=== PATIENT | male | born 1975 | race American Indian/Alaskan Native ===

== ENCOUNTER 2020-03-09 17:08 | Emergency (ER) | payer MEDICAID ==
[2020-03-09] MEDS ORDERED: Sodium Chloride 0.9% 10 ML Syringe FLUSH PRN (17:12)
[2020-03-09] MEDS ORDERED: fentaNYL 100 MCG/2 ML SDV IVPUSH ONE (17:13)
--- NOTE | 2020-03-09 17:16 | EDM.PDOC ---
<OfficerCarl - Last Filed: 03/09/20 17:14> ED HPI GENERAL MEDICAL PROBLEM - General Chief Complaint: Chest Pain Stated Complaint: [facility] Time Seen by Provider: 03/09/20 17:12 Source of Information: Reports: Patient, RN Notes Reviewed History Limitations: Reports: No Limitations - History of Present Illness INITIAL COMMENTS - FREE TEXT/NARRATIVE: 44-year-old gentleman presents emergency department a complaint of chest pain, he is unsure of when the pain started as he was asleep he is currently incarcerated. Report from [facility] states the pain started about an hour and a half prior to presentation. He does have a history of stenting x3 about 1 year ago, he did have pain going down his left arm and up into his jaw he received aspirin and 3 sprays of nitro in route he states the jaw pain and the arm pain have improved but he still having chest discomfort. No nausea or vomiting no shortness of breath - Related Data Allergies Allergy/AdvReac Type Severity Reaction Status Date / Time Penicillins Allergy Other Verified 03/09/20 17:16 Home Meds: Home Meds Fenofibrate 40 mg PO DAILY 03/09/20 [History] Metoprolol Tartrate 25 mg PO DAILY 03/09/20 [History] NK [No Known Home Meds] 03/09/20 [History] atorvaSTATin [Lipitor] 40 mg PO BEDTIME 03/09/20 [History] lisinopriL [Lisinopril] 5 mg PO DAILY 03/09/20 [History] Past Medical History Cardiovascular History: Reports: CAD, High Cholesterol, Hypertension, [place] Social & Family History - Tobacco Use Tobacco Use Status *Q: Current Every Day Tobacco User ED ROS GENERAL - Review of Systems Review Of Systems: See Below Constitutional: Reports: No Symptoms HEENT: Reports: No Symptoms Respiratory: Reports: No Symptoms Cardiovascular: Reports: Chest Pain GI/Abdominal: Reports: No Symptoms Musculoskeletal: Reports: Neck Pain, Arm Pain ED EXAM, GENERAL - Physical Exam Exam: See Below Exam Limited By: No Limitations General Appearance: Alert, WD/WN, No Apparent Distress Respiratory/Chest: No Respiratory Distress, Lungs Clear, Normal Breath Sounds, No Accessory Muscle Use, Chest Non-Tender Cardiovascular: Regular Rate, Rhythm, No Murmur GI/Abdominal: Soft, Non-Tender, Other (Umbilical hernia) Departure - Departure Disposition: Home, Self-Care 01 Clinical Impression: Atypical chest pain Contusion of hand, left Qualifiers: Encounter type: initial encounter Qualified Code(s): S60.222A - Contusion of left hand, initial encounter Referrals: PCP,None [Primary Care Provider] - Forms: ED Department Discharge <Octaviano Figueroa - Last Filed: 03/09/20 20:03> ED HPI GENERAL MEDICAL PROBLEM Chest Pain Score (Numeric/FACES): 7 Course - Vital Signs Last Recorded V/S: Last Vital Signs Temp 37.0 C 03/09/20 17:12 Pulse 75 03/09/20 19:36 Resp 16 03/09/20 19:36 BP 133/79 03/09/20 19:36 Pulse Ox 96 03/09/20 19:36 - Orders/Labs/Meds Orders: Active Orders 24 hr Category Date Time Status Cardiac Monitoring [RC] .As Directed Care 03/09/20 17:12 Active EKG Documentation Completion [RC] ASDIRECTED Care 03/09/20 17:13 Active Chest 1V Frontal [CR] Stat Exams 03/09/20 17:13 Taken Hand Comp Min 3V Lt [CR] Stat Exams 03/09/20 17:57 Taken Sodium Chloride 0.9% [Saline Flush] Med 03/09/20 17:12 Active 10 ml FLUSH ASDIRECTED PRN Saline Lock Insert [OM.PC] Stat Oth 03/09/20 17:12 Ordered EKG 12 Lead [EK] Stat Ther 03/09/20 17:13 Ordered Medication Orders Sodium Chloride (Saline Flush) 10 ml FLUSH ASDIRECTED PRN PRN Reason: Keep Vein Open Labs: Laboratory Tests 03/09/20 03/09/20 03/09/20 Range/Units 17:21 17:21 19:30 WBC 8.7 (4.5-11.0) K/uL RBC 5.10 (4.30-5.90) M/uL Hgb 14.9 (12.0-15.0) g/dL Hct 44.8 (40.0-54.0) % MCV 88 (80-98) fL MCH 29 (27-31) pg MCHC 33 (32-36) % Plt Count 274 (150-400) K/uL Neut % (Auto) 65 (36-66) % Lymph % (Auto) 27 (24-44) % [place] % (Auto) 7 H (2-6) % Eos % (Auto) 1 L (2-4) % Baso % (Auto) 0 (0-1) % Sodium 137 L (140-148) mmol/L Potassium 4.2 (3.6-5.2) mmol/L Chloride 102 (100-108) mmol/L Carbon Dioxide 25 (21-32) mmol/L Anion Gap 14.2 H (5.0-14.0) mmol/L BUN 10 (7-18) mg/dL Creatinine 1.0 (0.8-1.3) mg/dL Est Cr Clr Drug Dosing 118.14 mL/min Estimated GFR (MDRD) > 60 (>60) Glucose 113 H (74-106) mg/dL Calcium 8.8 (8.5-10.1) mg/dL Total Bilirubin 0.6 (0.2-1.0) mg/dL AST 17 (15-37) U/L ALT 40 (12-78) U/L Alkaline Phosphatase 112 (46-116) U/L Troponin I 0.021 0.020 (0.000-0.056) ng/mL Total Protein 7.5 (6.4-8.2) g/dL Albumin 3.9 (3.4-5.0) g/dL Globulin 3.6 H (2.3-3.5) g/dL Albumin/Globulin Ratio 1.1 L (1.2-2.2) Meds: Medications Generic Name Dose Route Start Last Admin Trade Name Freq PRN Reason Stop Dose Admin Sodium Chloride 10 ml 03/09/20 17:12 Saline Flush FLUSH ASDIRECTED PRN Keep Vein Open Discontinued Medications Generic Name Dose Route Start Last Admin Trade Name Freq PRN Reason Stop Dose Admin Fentanyl 100 mcg 03/09/20 17:13 03/09/20 17:22 Sublimaze IVPUSH 03/09/20 17:14 100 mcg ONETIME ONE Administration - Re-Assessments/Exams Free Text/Narrative Re-Assessment/Exam: 03/09/20 19:41 Assumed care of patient at change of shift from DrRafita Officer. Because of troponin in the high normal range and the patient's symptoms, will have a second troponin redrawn at 1930 hrs. If that looks okay then he will be released to home. If troponin is increasing, we will have to look monitoring or transfer. 03/09/20 20:02 I returned to review second troponin which is the same as the initial test. I do not see anything at this time suspicious for cardiac abnormalities. I recommend continuing current medications. Cold packs 20 minutes off and on to the painful area of the hand. Return to ER if feeling worse in any way. Departure - Departure Time of Disposition: 20:03 Sepsis Event Note (ED) - Focused Exam Vital Signs: Vital Signs Temp Pulse Resp BP Pulse Ox 03/09/20 19:36 75 16 133/79 96 03/09/20 19:11 70 14 120/70 96 03/09/20 18:41 73 14 125/77 96 03/09/20 18:22 77 12 122/78 97 03/09/20 17:12 37.0 C 85 20 128/63 98
--- NOTE | 2020-03-11 09:31 | CR ---
CHEST: Portable 03/09/2020 at 5:35 PM CLINICAL HISTORY:Chest pain COMPARISON:2010 FINDINGS: There is some chronic the pleural parenchymal changes in the left lower lung field. There appears to been previous rib fractures. The heart size, pulmonary vascularity and hilar structures are normal. No infiltrate effusion or pneumothorax is seen. IMPRESSION: No acute cardiopulmonary process
--- NOTE | 2020-03-11 09:34 | CR ---
Hand Comp Min 3V Lt CLINICAL HISTORY: Trauma, pain FINDINGS: There is no acute fracture or dislocation of the hand. There is an anatomic variant at the ulnar carpal junction. There is some minimal spurring of the scaphoid. Impression: No fracture or dislocation
== END 2020-03-09 20:20 | disposition home or self-care (01) ==
LOC: JP.ED 17:08
DX: R07.89 Other chest pain (principal); S60.222A Contusion of left hand, initial encounter; K42.0 Umbilical hernia with obstruction, without gangrene; I10 Essential (primary) hypertension; I25.2 Old myocardial infarction; I25.10 Atherosclerotic heart disease of native coronary artery without angina pectoris; E78.00 Pure hypercholesterolemia, unspecified; F17.200 Nicotine dependence, unspecified, uncomplicated; Z88.0 Allergy status to penicillin; Z79.899 Other long term (current) drug therapy; X58.XXXA Exposure to other specified factors, initial encounter
CPT/HCPCS: 36415; 71045; 73130; 80053; 84484; 85025; 93005; 96374; 99285; J3010; 93010; 99283